=== PATIENT | female | born 1985 | race Caucasian/White ===

== ENCOUNTER 2016-07-02 18:33 | Emergency (ER) | payer OTHER ==
[~2016-07-02] VITALS: Ht 170.2 cm; Wt 102.3 kg
[~2016-07-02 18:33] MED LIST: ADVAIR IH; ALBUTEROL0.09 MG/A1 IH; AMOXICILLIN 50500 MG PO; AUGMENTIN 875 M1 TAB PO; BACTRIM DS 8001 TAB PO; BCP TD; CEPHALEXIN500 M1 PO; FEOSOL65 MG PO; IBU800 M1 PO; NIFEREX-15150 MG/CAP PO; NORCO 325 MG-51 TAB PO; NUVARING1 ICR VG; PERCOCET 325 MG1 TA2 PO; PRENATAL1 TA1 PO; PROFERRIN ES12 MG PO; ZOFRAN 4MG T4 MG/TAB PO
[2016-07-02 18:35] VITALS: TEMP 98.6
[2016-07-02 19:14] LABS: BASO % 0.4 % (0.0-2.0); EOS # 0.1 (0.0-0.7); EOS % 0.8 % (0-4.0); GRAN # 8.9 (1.4-6.5); GRAN % 83.2 % (42.2-75.2); HEMATOCRIT 39.6 % (37.0-47.0); HEMOGLOBIN 12.9 g/dl (12.5-16.0); LYMPH # 0.8 (1.2-3.4); LYMPH % 7.5 % (20.0-51.0); MEAN CELL VOLUME 85 fl (80.0-100.0); MEAN CORPUSCULAR HEMOGLOBIN 28 pg (27.0-31.0); MEAN CORPUSCULAR HGB CONC 33 g/dl (33.0-37.0); MEAN PLATELET VOLUME 9.9 fl (7.4-10.4); MONO # 0.8 (0.1-0.6); MONO % 7.5 % (1.7-9.3); PLATELET COUNT 276 K/mm3 (130-400); RED BLOOD COUNT 4.66 M/mm3 (4.10-5.30); REDCELL DISTRIBUTION WIDTH-CV 13.6 % (11.5-14.5); WHITE BLOOD COUNT 10.7 K/mm3 (4.8-10.8)
[2016-07-02 19:16] LABS: PH 7 (5-8); URINE APPEARANCE Hazy; URINE BACTERIA None Seen /hpf; URINE BILIRUBIN Negative (NEGATIVE); URINE BLOOD Negative (NEGATIVE); URINE COLOR Yellow; URINE GLUCOSE Negative (NEGATIVE); URINE KETONE 1+ (NEGATIVE); URINE RBC 0-2 /hpf; URINE WBC 0-2 /hpf
[2016-07-02 19:22] LABS: ADJUSTED CALCIUM 8.7 mg/dL (8.4-10.2); ALBUMIN 4.4 gm/dL (3.5-5.0); CREATININE, serum 0.59 mg/dL (0.52-1.25); POTASSIUM 3.6 mmol/L (3.4-5.0); TOTAL PROTEIN 8.3 gm/dL (6.4-8.2)
[2016-07-02 20:04] LABS: INFLUENZA B NEGATIVE
[2016-07-02] MEDS ORDERED: PHENERGAN25 MG RC (21:36)
[2016-07-02] MEDS ORDERED: ZOFRAN ODT4 MG PO (21:36)
[2016-07-02 21:58] VITALS: BP 108/60; PULSE 108
== END 2016-07-02 21:59 | disposition home or self-care (01) ==
LOC: COL.ER 18:33
PROVIDERS: Emergency Medicine
DX: J06.9 Acute upper respiratory infection, unspecified (principal); K52.9 Noninfective gastroenteritis and colitis, unspecified; Z32.01 Encounter for pregnancy test, result positive
CPT/HCPCS: J2405; J2550; J2765; J7030

== ENCOUNTER → 2016-12-25 | Outpatient (REF) ==
[~2016-12-25] MED LIST changes: +PHENERGAN25 MG RC; +ZOFRAN ODT4 MG PO
== END ==
LOC: WSOH 11:55
DX: Z02.89 Encounter for other administrative examinations (principal)

== ENCOUNTER 2017-02-20 13:20 | Inpatient (IN) | payer BC ==
[~2017-02-20] VITALS: Ht 170.3 cm; Wt 109.5 kg
[2017-02-21] VITALS (17 sets, daily range): BP systolic 81–109; BP diastolic 47–75; PULSE 55–90; TEMP 97.2–98.2
[2017-02-21 10:48] LABS: BASO % 0.3 % (0.0-2.0); EOS % 0.4 % (0-4.0); GRAN # 5.7 (1.4-6.5); GRAN % 70.7 % (42.2-75.2); LYMPH # 1.6 (1.2-3.4); LYMPH % 20.5 % (20.0-51.0); MEAN CELL VOLUME 82 fl (80.0-100.0); MEAN CORPUSCULAR HGB CONC 31 g/dl (33.0-37.0); MONO # 0.6 (0.1-0.6); MONO % 7.5 % (1.7-9.3); PLATELET COUNT 203 K/mm3 (130-400); RED BLOOD COUNT 3.47 M/mm3 (4.10-5.30); REDCELL DISTRIBUTION WIDTH-CV 14.8 % (11.5-14.5)
[2017-02-21 10:49] LABS: HEMATOCRIT 28.4 % (37.0-47.0); HEMOGLOBIN 8.7 g/dl (12.5-16.0); MEAN CORPUSCULAR HEMOGLOBIN 25 pg (27.0-31.0)
[2017-02-22 00:15] VITALS: BP 95/59; PULSE 59; TEMP 98
[2017-02-22 07:20] VITALS: BP 93/51; PULSE 74; TEMP 97.7
[2017-02-22 12:30] VITALS: BP 110/64; PULSE 81; TEMP 98.2
[2017-02-22 17:00] VITALS: BP 102/67; PULSE 81; TEMP 98.3
[2017-02-22 21:00] VITALS: BP 114/66; PULSE 73; TEMP 98.3
[2017-02-23] MEDS ORDERED: PERCOCET 325 MG1 TA2 PO (08:30)
[2017-02-23] MEDS ORDERED: IBU800 M1 PO (08:30)
[2017-02-23 09:30] VITALS: BP 107/62; PULSE 76; TEMP 97.7
[2017-02-23 16:15] VITALS: BP 114/64; PULSE 73; TEMP 98.3
[2017-02-23 22:14] VITALS: BP 119/57; PULSE 78; TEMP 98.3
[2017-02-24 07:31] VITALS: BP 110/68; PULSE 80; TEMP 98.1
[2017-02-24 17:00] VITALS: BP 112/72; PULSE 82; TEMP 97.8
[2017-02-24 19:28] VITALS: BP 109/74; PULSE 78; TEMP 98.2
[2017-02-25 07:39] VITALS: BP 120/72; PULSE 79; TEMP 98.1
== END 2017-02-25 17:30 | disposition home or self-care (01) | DRG 765 ==
LOC: OB 13:20
PROVIDERS: Obstetrics & Gynecology
PROC: 10D00Z1 Extraction of Products of Conception, Low, Open Approach (ICD-10-PCS; principal; 2017-02-21)
DX: O34.211 Maternal care for low transverse scar from previous cesarean delivery (principal); O36.0130 Maternal care for anti-D [Rh] antibodies, third trimester, not applicable or unspecified; N85.8 Other specified noninflammatory disorders of uterus; O99.02 Anemia complicating childbirth; D64.9 Anemia, unspecified; O69.81X0 Labor and delivery complicated by cord around neck, without compression, not applicable or unspecified; Z3A.39 39 weeks gestation of pregnancy; Z37.0 Single live birth
CPT/HCPCS: J0690; J1885; J2270; J2370; J2405; J2550; J2590; J7120

== ENCOUNTER 2018-01-27 13:04 | Emergency (ER) | payer MEDICAID ==
[~2018-01-27] VITALS: Ht 170.2 cm; Wt 100.0 kg
[2018-01-27 13:07] VITALS: BP 135/80
[2018-01-27] MEDS ORDERED: PRENATAL PO (13:28)
[2018-01-27 13:43] LABS: BASO % 0.2 % (0.0-2.0); EOS % 0.5 % (0-4.0); GRAN # 6.8 (1.4-6.5); HEMOGLOBIN 10.8 g/dl (12.5-16.0); LYMPH # 1.2 (1.2-3.4); LYMPH % 14.5 % (20.0-51.0); MEAN CELL VOLUME 85 fl (80.0-100.0); MEAN CORPUSCULAR HEMOGLOBIN 29 pg (27.0-31.0); MEAN CORPUSCULAR HGB CONC 33 g/dl (33.0-37.0); MEAN PLATELET VOLUME 10.2 fl (7.4-10.4); MONO # 0.5 (0.1-0.6); MONO % 5.4 % (1.7-9.3); PLATELET COUNT 214 K/mm3 (130-400); RED BLOOD COUNT 3.78 M/mm3 (4.10-5.30); REDCELL DISTRIBUTION WIDTH-CV 14.5 % (11.5-14.5)
[2018-01-27 13:51] LABS: HEMATOCRIT 32.3 % (37.0-47.0)
[2018-01-27 13:56] LABS: ALBUMIN 3.5 gm/dL (3.5-5.0); BILIRUBIN,TOTAL 0.4 mg/dL (0.0-1.0); C-REACTIVE PROTEIN 1.4 mg/dL (0.0-0.9); CALCIUM 8.3 mg/dL (8.4-10.2); CREATININE, serum 0.43 mg/dL (0.52-1.25); POTASSIUM 3.6 mmol/L (3.4-5.0); TOTAL PROTEIN 6.8 gm/dL (6.4-8.2)
[2018-01-27 14:33] LABS: COLLECTION METHOD CLEAN CATCH
[2018-01-27 14:41] LABS: MUCOUS Present /lpf; PH 6 (5-8); SQUAMOUS EPITHELIAL 0-2 /hpf; URINE APPEARANCE Clear; URINE BACTERIA None Seen /hpf; URINE BILIRUBIN Negative (NEGATIVE); URINE BLOOD 2+ (NEGATIVE); URINE COLOR Yellow; URINE GLUCOSE Negative (NEGATIVE); URINE KETONE Negative (NEGATIVE); URINE LEUKOCYTE ESTERASE 3+ (NEGATIVE); URINE NITRATE Negative (NEGATIVE); URINE PROTEIN(semi-quant) 1+ (NEGATIVE); URINE RBC 20-50 /hpf; URINE UROBILINOGEN Negative (NEGATIVE)
[2018-01-27] MEDS ORDERED: CEFTIN500 MG PO (15:10)
[2018-01-27 15:19] VITALS: PULSE 77; TEMP 98.5
== END 2018-01-27 15:20 | disposition home or self-care (01) ==
LOC: COL.ER 13:04
PROVIDERS: Emergency Medicine; Nurse Practitioner
DX: O23.42 Unspecified infection of urinary tract in pregnancy, second trimester (principal); R39.15 Urgency of urination; O99.512 Diseases of the respiratory system complicating pregnancy, second trimester; J45.909 Unspecified asthma, uncomplicated; Z3A.00 Weeks of gestation of pregnancy not specified
CPT/HCPCS: J7030

== ENCOUNTER 2018-05-17 06:50 | Emergency (ER) | payer MEDICAID ==
[~2018-05-17] VITALS: Ht 170.2 cm; Wt 106.8 kg
[~2018-05-17 06:50] MED LIST changes: +CEFTIN500 MG PO; +PRENATAL PO
[2018-05-17 06:53] VITALS: TEMP 97.4
[2018-05-17 07:25] LABS: BASO % 0.3 % (0.0-2.0); EOS % 0.4 % (0-4.0); GRAN # 8.3 (1.4-6.5); GRAN % 84.7 % (42.2-75.2); HEMOGLOBIN 11.5 g/dl (12.5-16.0); LYMPH # 0.7 (1.2-3.4); MEAN CELL VOLUME 88 fl (80.0-100.0); MEAN CORPUSCULAR HEMOGLOBIN 29 pg (27.0-31.0); MEAN CORPUSCULAR HGB CONC 34 g/dl (33.0-37.0); MEAN PLATELET VOLUME 10.2 fl (7.4-10.4); MONO # 0.7 (0.1-0.6); MONO % 7.2 % (1.7-9.3); PLATELET COUNT 208 K/mm3 (130-400); RED BLOOD COUNT 3.92 M/mm3 (4.10-5.30); REDCELL DISTRIBUTION WIDTH-CV 14.3 % (11.5-14.5)
[2018-05-17 07:26] LABS: HEMATOCRIT 34.3 % (37.0-47.0)
[2018-05-17 07:34] LABS: ALBUMIN 3.4 gm/dL (3.5-5.0); BILIRUBIN,TOTAL 0.3 mg/dL (0.0-1.0); CALCIUM 8.4 mg/dL (8.4-10.2); CREATININE, serum 0.4 mg/dL (0.52-1.25); POTASSIUM 4.2 mmol/L (3.4-5.0); TOTAL PROTEIN 6.7 gm/dL (6.4-8.2)
[2018-05-17 07:59] LABS: COLLECTION METHOD CLEAN CATCH
[2018-05-17 08:06] LABS: MUCOUS Present /lpf; PH 8 (5-8); SQUAMOUS EPITHELIAL 0-2 /hpf; URINE APPEARANCE Clear; URINE BACTERIA Rare /hpf; URINE BILIRUBIN Negative (NEGATIVE); URINE BLOOD Negative (NEGATIVE); URINE COLOR Yellow; URINE GLUCOSE Negative (NEGATIVE); URINE KETONE Negative (NEGATIVE); URINE LEUKOCYTE ESTERASE Negative (NEGATIVE); URINE NITRATE Negative (NEGATIVE); URINE PROTEIN(semi-quant) 2+ (NEGATIVE); URINE RBC None Seen /hpf; URINE UROBILINOGEN Negative (NEGATIVE)
[2018-05-17] MEDS ORDERED: ZOFRAN 4MG T4 MG/TAB PO (09:13)
[2018-05-17 10:17] VITALS: BP 102/66; PULSE 91
== END 2018-05-17 10:16 | disposition home or self-care (01) ==
LOC: COL.ER 06:50
PROVIDERS: Emergency Medicine
DX: O21.8 Other vomiting complicating pregnancy (principal); O99.613 Diseases of the digestive system complicating pregnancy, third trimester; K22.6 Gastro-esophageal laceration-hemorrhage syndrome; Z3A.32 32 weeks gestation of pregnancy
CPT/HCPCS: J0780; J1200; J2405; J7030

== ENCOUNTER 2018-07-05 05:36 | Inpatient (IN) | payer MEDICAID ==
[2018-07-05] VITALS (20 sets, daily range): BP systolic 85–122; BP diastolic 44–78; PULSE 62–96; TEMP 97.6–98.2
[~2018-07-05] VITALS: Ht 167.6 cm; Wt 110.9 kg
[2018-07-05] MEDS ORDERED: LEXAPRO20 MG PO (06:24)
[2018-07-05] MEDS ORDERED: NATURAL IRON65 MG (06:25)
[2018-07-05] MEDS ORDERED: CALCIUM CARBON650 M2 (06:25)
[2018-07-05] MEDS ORDERED: PRENATAL MVI (06:25)
[2018-07-05] MEDS ORDERED: STOOL SOFTENER100 M2 PO (06:25)
[2018-07-05 06:32] LABS: BASO % 0.2 % (0.0-2.0); EOS # 0.1 (0.0-0.7); GRAN # 5.7 (1.4-6.5); GRAN % 65.7 % (42.2-75.2); HEMATOCRIT 34.1 % (37.0-47.0); HEMOGLOBIN 11.3 g/dl (12.5-16.0); LYMPH # 1.9 (1.2-3.4); LYMPH % 22.2 % (20.0-51.0); MEAN CELL VOLUME 87 fl (80.0-100.0); MEAN CORPUSCULAR HEMOGLOBIN 29 pg (27.0-31.0); MEAN CORPUSCULAR HGB CONC 33 g/dl (33.0-37.0); MEAN PLATELET VOLUME 10.2 fl (7.4-10.4); MONO # 0.9 (0.1-0.6); MONO % 10.2 % (1.7-9.3); PLATELET COUNT 199 K/mm3 (130-400); REDCELL DISTRIBUTION WIDTH-CV 14.9 % (11.5-14.5)
--- NOTE | 2018-07-05 09:05 | NUR ---
Patient to room, oriented, plan of care discussed. 0930: Whiteboard gone over and packet gone over.
[2018-07-06 00:35] VITALS: BP 91/55; PULSE 67; TEMP 98.1
[2018-07-06 04:55] VITALS: BP 72/37; PULSE 72; TEMP 98.2
[2018-07-06 10:03] VITALS: BP 120/68; PULSE 72; TEMP 98.1
[2018-07-06] MEDS ORDERED: IBU800 M1 PO (10:50)
[2018-07-06] MEDS ORDERED: PERCOCET 325 MG1 TA2 PO (10:51)
--- NOTE | 2018-07-06 13:08 | NUR ---
Seed Sales Manager offered congrats to patient.
--- NOTE | 2018-07-06 16:00 | NUR ---
Assumed care of patient. Family at bedside. 2599 Motrin 800 mg. p.o. given as ordered.
[2018-07-06 16:45] VITALS: BP 103/62; PULSE 91; TEMP 98.4
[2018-07-06 19:31] VITALS: BP 104/61; PULSE 89; TEMP 97.9
--- NOTE | 2018-07-07 08:00 | NUR ---
0840 Rests in bed, alert. Ibuprofen 800 mg. given as ordered for pain.
[2018-07-07 08:30] VITALS: BP 113/68; PULSE 85; TEMP 98.2
[2018-07-07 16:30] VITALS: BP 112/72; PULSE 83; TEMP 98.5
--- NOTE | 2018-07-07 16:51 | NUR ---
Rests in bed, alert. States going to feed baby. Ibuprofen 800 mg given as ordered.
[2018-07-07 19:35] VITALS: BP 118/72; PULSE 87; TEMP 98.1
[2018-07-08] MEDS ORDERED: PERCOCET 325 MG1 TA2 PO (07:34)
--- NOTE | 2018-07-08 10:28 | NUR ---
Initial visit; Parents thanked Surplus Property Disposal Agent for offering congratulations and God's blessings for the of their daughter and for thanking them for choosing [facility].
== END 2018-07-08 11:02 | disposition home or self-care (01) | DRG 788 ==
LOC: OB 05:36
PROVIDERS: ADMIT Obstetrics & Gynecology
PROC: 10D00Z1 Extraction of Products of Conception, Low, Open Approach (ICD-10-PCS; principal; 2018-07-05)
DX: O34.211 Maternal care for low transverse scar from previous cesarean delivery (principal); Z3A.39 39 weeks gestation of pregnancy; Z37.0 Single live birth; O69.81X0 Labor and delivery complicated by cord around neck, without compression, not applicable or unspecified; O99.344 Other mental disorders complicating childbirth; F32.9 Major depressive disorder, single episode, unspecified; J45.909 Unspecified asthma, uncomplicated; O26.893 Other specified pregnancy related conditions, third trimester; Z67.31 Type AB blood, Rh negative
CPT/HCPCS: J0690; J1885; J2270; J2370; J2405; J2550; J2590; J2765; J2791; J3010; J7120

== ENCOUNTER → 2020-01-20 | Outpatient (CLI) | payer MEDICAID ==
[~2020-01-20] MED LIST changes: +CALCIUM CARBON650 M2; +LEXAPRO20 MG PO; +MOTRIN 800800 MG/TAB PO; +NATURAL IRON65 MG; +PRENATAL MVI; +STOOL SOFTENER100 M2 PO
== END ==
LOC: ZCOL.LAB 09:30
DX: Z20.828 Contact with and (suspected) exposure to other viral communicable diseases (principal)

== ENCOUNTER 2020-01-26 05:27 | Inpatient (IN) | payer MEDICAID ==
[~2020-01-26] VITALS: Ht 167.6 cm; Wt 112.7 kg
[2020-01-26] VITALS (18 sets, daily range): BP systolic 99–144; BP diastolic 51–76; PULSE 66–111; TEMP 97.5–98.5
[~2020-01-26 05:27] MED LIST changes: -MOTRIN 800800 MG/TAB PO
--- NOTE | 2020-01-26 05:30 | NUR ---
0530- Pt. ambulatory to the unit with spouse by her side. Pt. orientated to room and changed into clean gown. Pt. reports GFM, no LOF and reports feeling contractions pretty regularly. 0535- EFM and TOCO on and tracing. Vitals taken, consents signed, IV started, fluids running, labs drawn and pre-op meds given.
[2020-01-26 06:42] LABS: BASO % 0.3 % (0.0-2.0); EOS # 0.1 (0.0-0.7); EOS % 2.1 % (0-4.0); GRAN # 4.1 (1.4-6.5); GRAN % 62.2 % (42.2-75.2); LYMPH # 1.6 (1.2-3.4); LYMPH % 23.7 % (20.0-51.0); MEAN CELL VOLUME 84 fl (80.0-100.0); MEAN CORPUSCULAR HGB CONC 31 g/dl (33.0-37.0); MEAN PLATELET VOLUME 11.3 fl (7.4-10.4); MONO # 0.7 (0.1-0.6); MONO % 11.2 % (1.7-9.3); PLATELET COUNT 188 K/mm3 (130-400); RED BLOOD COUNT 3.71 M/mm3 (4.10-5.30)
[2020-01-26 06:43] LABS: HEMOGLOBIN 9.6 g/dl (12.5-16.0); MEAN CORPUSCULAR HEMOGLOBIN 26 pg (27.0-31.0)
[2020-01-27 02:10] VITALS: BP 106/55; PULSE 75; TEMP 98.3
[2020-01-27 08:25] VITALS: BP 97/62; PULSE 88; TEMP 98
--- NOTE | 2020-01-27 08:44 | NUR ---
Initial visit attemptl Patient resting, Laboratory Coordinator left card of congratulations for the of their son and information regarding the availability of spiritual care at our hospital.
[2020-01-27 16:20] VITALS: BP 96/50; PULSE 78; TEMP 98
[2020-01-27 20:30] VITALS: BP 114/67; PULSE 76; TEMP 98.5
[2020-01-28 06:45] VITALS: BP 114/66; PULSE 74; TEMP 98.1
[2020-01-28] MEDS ORDERED: MOTRIN 800800 MG/TAB PO (06:58)
[2020-01-28] MEDS ORDERED: PERCOCET 325 MG1 TA2 PO (06:59)
== END 2020-01-28 15:56 | disposition home or self-care (01) | DRG 788 ==
LOC: OB 05:27
PROVIDERS: ADMIT Obstetrics & Gynecology
PROC: 10D00Z1 Extraction of Products of Conception, Low, Open Approach (ICD-10-PCS; principal; 2020-01-26)
DX: O34.211 Maternal care for low transverse scar from previous cesarean delivery (principal); Z37.0 Single live birth; O99.02 Anemia complicating childbirth; D64.9 Anemia, unspecified; Z3A.39 39 weeks gestation of pregnancy
CPT/HCPCS: J0690; J1100; J1885; J2175; J2370; J2405; J2550; J2590; J7120

== ENCOUNTER 2021-03-06 10:38 | Emergency (ER) | payer MEDICAID ==
[~2021-03-06] VITALS: Ht 170.2 cm; Wt 102.3 kg
[~2021-03-06 10:38] MED LIST changes: +MOTRIN 800800 MG/TAB PO
[2021-03-06 10:40] VITALS: TEMP 98.1
[2021-03-06] MEDS ORDERED: CEPHALEXIN500 M1 PO (12:23)
[2021-03-06 12:53] VITALS: BP 130/81; PULSE 100
== END 2021-03-06 13:00 | disposition home or self-care (01) ==
LOC: COL.ER 10:38
DX: T15.91XA Foreign body on external eye, part unspecified, right eye, initial encounter (principal); J45.990 Exercise induced bronchospasm; Y04.0XXA Assault by unarmed brawl or fight, initial encounter
CPT/HCPCS: J2060; J2405

== ENCOUNTER → 2021-03-11 | Outpatient (CLI) | payer MEDICAID | LOC: COL.ER 15:30 | DX: Z48.02 Encounter for removal of sutures (principal) ==